=== PATIENT | female | born 1975 | race Caucasian/White ===

== ENCOUNTER 2022-08-21 07:52 | Day surgery (SDC) | payer BC, OTHER ==
[~2022-08-21] VITALS: Ht 157.5 cm; Wt 87.3 kg
[~2022-08-21 07:52] MED LIST: D3 S20002 PO; IUD IU; SEMA2.4P SQ; ceFAZolin SOD 2 GM in IV 1 EA IV ONE
[2022-08-21] MEDS ORDERED: INSULIN LISPRO (NovoLOG) PER UNIT SC PRN (08:25)
[2022-08-21] MEDS ORDERED: LR 1,000 ML IV SCH (08:25)
[2022-08-21] MEDS ORDERED: LIDOCAINE 2% 100MG/5ML SDV (FOR ANES.) As Ordered ONE ×2 (09:59→10:59)
[2022-08-21] MEDS ORDERED: propofoL 200 MG/20 ML VIAL As Ordered ONE ×2 (09:59→10:48)
[2022-08-21] MEDS ORDERED: MIDAZOLAM INJ 2MG/2ML VIAL As Ordered ONE (09:59)
[2022-08-21] MEDS ORDERED: fentaNYL 100 MCG/2 ML INJECTION As Ordered ONE (09:59)
[2022-08-21] MEDS ORDERED: FLOM0.4C39 PO (10:23)
[2022-08-21] MEDS ORDERED: OXYC1TAB23 PO (10:23)
[2022-08-21] MEDS ORDERED: ONDANSETRON 4MG 2ML VIAL As Ordered ONE (11:00)
[2022-08-21 11:30] VITALS: BP 121/79; TEMP 97.3; O2SAT 99
== END 2022-08-21 11:40 | disposition home or self-care (01) ==
LOC: M SDC 07:52
PROVIDERS: ATTEND Urology
DX: N20.0 Calculus of kidney (principal); N13.30 Unspecified hydronephrosis; Z79.899 Other long term (current) drug therapy; Z97.5 Presence of (intrauterine) contraceptive device
CPT/HCPCS: 50590; 74018; 81025; J0690; J2250; J2405; J3010

== ENCOUNTER → 2022-09-15 | Outpatient (REF) | payer BC, OTHER ==
[~2022-09-15] MED LIST changes: +FLOM0.4C39 PO; +OXYC1TAB23 PO; -ceFAZolin SOD 2 GM in IV 1 EA IV ONE
== END ==
LOC: M SMT 13:10
PROVIDERS: ATTEND Physician Assistant
DX: Z48.816 Encounter for surgical aftercare following surgery on the genitourinary system (principal)